=== PATIENT | female | born 1950 ===

== ENCOUNTER 2020-04-23 09:45 | Inpatient (IN) | payer OTHER ==
[~2020-04-23] VITALS: Ht 154.9 cm; Wt 70.3 kg
[2020-04-23] MEDS ORDERED: AMLODIPINE PO (12:33)
[2020-04-23] MEDS ORDERED: HYDROCHLOROTHIA25 MG PO (12:33)
[2020-04-23] MEDS ORDERED: TOPROL XL100 M1 PO (12:34)
[2020-04-23] MEDS ORDERED: HORIZANT600 MG PO (12:34)
[2020-04-23] MEDS ORDERED: ACID REDUCER20 M1 PO (12:35)
[2020-04-23] MEDS ORDERED: [UNRECOGNIZED DRUG - REMARK] PO (12:35)
[2020-04-30] MEDS ORDERED: AMLODIPINE BESY10 MG (09:34)
[2020-04-30] MEDS ORDERED: TENCON 50-3251 EACH (09:38)
[2020-05-02] MEDS ORDERED: OXYC1TAB9 PO (07:43)
[2020-05-02] MEDS ORDERED: XARELTO10 MG PO (07:43)
[2020-05-02] MEDS ORDERED: BACTRIM DS TAB1 EACH PO (07:43)
[2020-05-02] MEDS ORDERED: INTEGRA PLUS C1 EACH PO (07:43)
== END 2020-05-02 15:25 | DRG 470 ==
LOC: O/R 04-30 06:40 → SURG 04-30 06:40 → SURH 04-30 07:00 → SURG 04-30 14:10
PROVIDERS: ADMIT Orthopaedic Surgery Sports Medicine; ATTEND Orthopaedic Surgery Sports Medicine
PROC: 0SRC0J9 Replacement of Right Knee Joint with Synthetic Substitute, Cemented, Open Approach (ICD-10-PCS; principal; 2020-04-30 07:00)
DX: M17.11 Unilateral primary osteoarthritis, right knee (principal)